=== PATIENT | female | born 1995 | race Caucasian/White ===

== ENCOUNTER → 2017-06-24 | Outpatient (CLI) | payer BC ==
[2017-06-26 02:28] LABS: CHLAMYDIA TRACH RNA*** NOT DETECTED (NOT DETECTED); GC (NEIS GONORRHOEAE)RNA** NOT DETECTED (NOT DETECTED)
== END | disposition home or self-care (01) ==
LOC: C.LABSPEC 10:59
PROVIDERS: ATTEND Physician Assistant
DX: N89.8 Other specified noninflammatory disorders of vagina (principal)

== ENCOUNTER 2017-07-02 20:12 | Emergency (ER) | payer BC ==
[~2017-07-02] VITALS: Ht 182.9 cm; Wt 68.4 kg
[2017-07-02 20:18] VITALS: BP 123/67; TEMP 36.5; Ht 182.9 cm; Wt 68.4 kg
[2017-07-02] MEDS ORDERED: ETON1IMP2 INTRAD (20:49)
--- NOTE | 2017-07-02 21:05 | DIAGNOSTIC IMAGING REPORT ---
R ELBOW MIN 3 VIEWS ROUTINE CLINICAL HISTORY: 21 years-old Female presenting with right elbow pain, fall on outstretched hand. TECHNIQUE: Frontal, oblique, and lateral views of the right elbow were obtained. COMPARISON: None. FINDINGS: Evidence of an elbow joint effusion with displacement of the anterior posterior fat pads. However, no fracture or malalignment is evident. Specifically, the radial head is normal in appearance. No degenerative change. IMPRESSION: Elbow joint effusion raises concern for a nondisplaced intra-articular fracture, however, can also be seen in the setting of trauma without fracture in a younger patient. No direct radiographic evidence of acute osseous injury. Electronically signed by: Magdy Joseph M.D. 07/02/2017 9:04 PM Dictated Date/Time: 07/02/2017 9:02 PM
--- NOTE | 2017-07-02 21:19 | EMERGENCY ROOM VISIT NOTE ---
History First contact with patient: 20:22 Chief Complaint: ELBOW PAIN/INJURY Stated Complaint: FELL ON OUTSTRETCHED HAND, POSSIBLE ELBOW DISLOC. History of Present Illness The patient is a 21 year old female who presents to the Emergency Room with complaints of right elbow pain after a fall. The patient reports that she fell onto an outstretched arm this morning. She reports pain in the right elbow and has difficulty moving the elbow. She rates her discomfort a 3/10. She denies any pain in the wrist or shoulder. She denies any numbness or weakness. She denies previous injury to this elbow. Review of Systems A complete 10 point review of systems was reviewed with the patient with pertinent positives and negatives as per history of present illness. All else were negative. Social History Smoking Status: Former Smoker Current/Historical Medications Scheduled Etonogestrel (Nexplanon), 68 MG INTRAD UD Physical Exam Vital Signs Date Time Temp Pulse Resp B/P (MAP) Pulse Ox O2 Delivery O2 Flow Rate FiO2 07/02/17 21:30 78 16 98 07/02/17 20:18 36.5 80 18 123/67 100 Room Air Physical Exam VITALS: Vitals are noted on the nurse's note and reviewed by myself. Vital signs stable. GENERAL: This is a 21-year-old female, in no acute distress, nondiaphoretic, well-developed well-nourished. MUSCULOSKELETAL: There is vague tenderness to the right elbow. There is slightly decreased range of motion of the right elbow secondary to patient discomfort. Radial pulse 2+. Capillary refill within 2 seconds. No tenderness of the right forearm or shoulder. NEURO: Patient was alert and oriented to person place and time. Normal sensation. Medical Decision & Procedures ER Provider Diagnostic Interpretation: R ELBOW MIN 3 VIEWS ROUTINE CLINICAL HISTORY: 21 years-old Female presenting with right elbow pain, fall on outstretched hand. TECHNIQUE: Frontal, oblique, and lateral views of the right elbow were obtained. COMPARISON: None. FINDINGS: Evidence of an elbow joint effusion with displacement of the anterior posterior fat pads. However, no fracture or malalignment is evident. Specifically, the radial head is normal in appearance. No degenerative change. IMPRESSION: Elbow joint effusion raises concern for a nondisplaced intra-articular fracture, however, can also be seen in the setting of trauma without fracture in a younger patient. No direct radiographic evidence of acute osseous injury. Medical Decision Differential diagnosis includes fracture, contusion, dislocation, sprain, among others. The patient was evaluated as above. She presents with right elbow pain. There is no pain of the wrist or shoulder. X-ray was obtained and does not show any obvious fractures, but does show a joint effusion of the right elbow with positive sail sign. Patient will be placed in an arm sling and will have follow -up with orthopedics to rule out an occult fracture. Conservative measures were discussed with the patient and mother. They verbalized understanding of my assessment and treatment plan and the patient was discharged home in good condition. Medication Reconcilliation Current Medication List: was personally reviewed by me Blood Pressure Screening Patient's blood pressure: Normal blood pressure Impression Primary Impression: Effusion, right elbow Departure Information Dispostion Home / Self-Care Condition GOOD Referrals Rock Ramsay M.D.(MARIO) (PCP) Magdy Silva D.O. Patient Instructions My [facility] Additional Instructions You have been treated in the Emergency Department for an elbow injury. For pain control, you can use the following [id number] medicines (if >12 yo): - Regular strength (325mg/tab) Tylenol (acetaminophen) 2 tabs every 4-6 hours as needed. Do not exceed 12 tablets in a 24 hour period. Avoid taking more than 4 grams (4000 mg) of Tylenol per day. This includes any other sources of acetaminophen you may take on a regular basis. - Regular strength (200 mg/tab) Advil (ibuprofen) 1-2 tabs every 4-6 hours as needed. Do not exceed a dose of 3200 mg per day. If this is a recent injury (<24 hrs), ice can be applied to the area of pain for the first 3 days to help decrease pain and inflammation. You have been provided the number for an Orthopaedic Surgeon. You should call this number as soon as possible to establish a follow-up visit from today's Emergency Department visit. Keep the sling in place until evaluated by Orthopedics. Return to the Emergency Department if your current symptoms worsen despite treatment course outlined above, or if you develop any of the following symptoms : intractable pain despite aforementioned treatment course or new onset of numbness or tingling of the arm.
[2017-07-02 21:30] VITALS: PULSE 78; O2SAT 98
== END 2017-07-02 21:31 | disposition home or self-care (01) ==
LOC: C.EDB 20:13 → C.EDD 21:31
DX: M25.421 Effusion, right elbow (principal); Z87.891 Personal history of nicotine dependence